=== PATIENT | male | born 1990 | race Caucasian/White ===

== ENCOUNTER 2019-09-23 11:30 | Emergency (ER) | payer OTHER, BC ==
[2019-09-23 12:38] LABS: ABSOLUTE EOSINOPHILS # (AUTO) 0.1 10^3/uL (0.0-0.6); ABSOLUTE LYMPHOCYTES (AUTO) 2.4 10^3/uL (0.5-4.7); ABSOLUTE MONOCYTES (AUTO) 0.8 10^3/uL (0.1-1.4); BASOPHILS % (AUTO) 0.4 % (0-2); EOSINOPHILS % (AUTO) 1.2 % (0-6); HEMATOCRIT 40.6 % (37.9-51.0); HEMOGLOBIN 14.1 g/dL (13.5-17.0); LYMPHOCYTES % (AUTO) 38.3 % (13-45); MEAN CORPUSCULAR HEMOGLOBIN 32.3 pg (27.0-33.4); MEAN CORPUSCULAR HGB CONC 34.6 g/dL (32.0-36.0); MEAN CORPUSCULAR VOLUME 93 fl (80-97); MONOCYTES % (AUTO) 12.8 % (3-13); PLATELET COUNT 124 10^3/uL (150-450); RED BLOOD COUNT 4.35 10^6/uL (4.35-5.55); RED CELL DISTRIBUTION WIDTH 12.7 % (11.5-14.0); SEGMENTED NEUTROPHILS % (AUTO) 47.3 % (42-78); TOTAL CELLS COUNTED % (AUTO) 100 %; WHITE BLOOD COUNT 6.3 10^3/uL (4.0-10.5)
[2019-09-23 13:04] LABS: ALBUMIN 4.3 g/dL (3.5-5.0); ALCOHOL 184 mg/dL (NONE DETECTED); ALKALINE PHOSPHATASE 54 U/L (38-126); ANION GAP 12 (5-19); ASPARTATE AMINO TRANSFERASE 33 U/L (17-59); BILIRUBIN,DIRECT 0.2 mg/dL (0.0-0.4); BILIRUBIN,TOTAL 0.4 mg/dL (0.2-1.3); BLOOD UREA NITROGEN 14 mg/dL (7-20); CALCIUM 8.6 mg/dL (8.4-10.2); CARBON DIOXIDE 24 mmol/L (22-30); CHLORIDE 106 mmol/L (98-107); GLUCOSE 85 mg/dL (75-110); TOTAL PROTEIN 6.8 g/dL (6.3-8.2)
[2019-09-23 13:05] LABS: ACETAMINOPHEN < 10 ug/mL (10-30); SALICYLATE < 1.0 mg/dL (2.0-20.0)
[2019-09-23 15:23] LABS: APPEARANCE,URINE CLEAR; BILIRUBIN,URINE NEGATIVE (NEGATIVE); COLOR,URINE YELLOW; GLUCOSE, URINE NEGATIVE (NEGATIVE); KETONES,URINE NEGATIVE (NEGATIVE); LEUKOCYTE ESTERASE,URINE NEGATIVE (NEGATIVE); NITRITE,URINE NEGATIVE (NEGATIVE); PROTEIN,URINE NEGATIVE (NEGATIVE); URINE SPECIFIC GRAVITY 1.016; UROBILINOGEN,URINE NEGATIVE mg/dL (<2.0)
[2019-09-23 15:38] LABS: URINE AMPHETAMINES SCREEN NEGATIVE; URINE BARBITURATES SCREEN NEGATIVE; URINE BENZODIAZEPINES SCREEN NEGATIVE; URINE COCAINE SCREEN NEGATIVE; URINE MARIJUANA (THC) SCREEN NEGATIVE; URINE METHADONE SCREEN NEGATIVE; URINE PHENCYCLIDINE SCREEN NEGATIVE
--- NOTE | 2019-09-23 16:26 | ER Document Report ---
ED General - General Chief Complaint: Accidental Overdose Stated Complaint: ALTERED MENTAL STATUS Time Seen by Provider: 09/23/19 14:52 Primary Care Provider: AMBER MATSON [Primary Care Provider] - Follow up tomorrow Notes: Patient is a 29-year-old male who comes in because his could not wake him up today. The patient works overnight as a medic. States that he went to sleep at 6 AM and his tried to wake him up this morning at 8 AM because he was snoring too loudly and was waking up their baby. He also took When she was unable to wake him up, she called EMS. Patient states that he started an increased dose of prazosin recently which he just took this morning to go to sleep. He was supposed to work [employer]. He is taking 2 pills instead of 1. Patient also took trazodone, Ultram, and drank alcohol. Patient states that he generally has a very difficult time sleeping and this is what he usually does so that he can fall asleep before he has to work overnight. States that he is actually decreased his drinking of alcohol which his agrees with. He is adamant that this was not a suicidal gesture. He does not feel like hurting himself or anyone else. Patient did not have any trouble breathing but he did receive EMS dose of Narcan for increased somnolence which apparently woke him up. I am not sure whether it was the Narcan or the needle that woke him up. He has no complaints at this time. No nausea vomiting diarrhea, abdominal pain or further concerns. States that he usually does not sleep that soundly. states that she usually does not have that much of a problem waking him up. TRAVEL OUTSIDE OF THE [place] IN LAST 30 DAYS: No - HPI Onset: This morning Quality of pain: No pain Severity: None Pain Level: Denies Associated symptoms: None Exacerbated by: Denies Relieved by: Denies Similar symptoms previously: No Recently seen / treated by doctor: Yes - Related Data Allergies/Adverse Reactions: Sulfa (Sulfonamide Antibiotics) Allergy (Verified 08/14/15 20:50) Past Medical History - Social History Smoking Status: Unknown if Ever Smoked Frequency of alcohol use: Heavy Family History: Reviewed & Not Pertinent Patient has suicidal ideation: No Patient has homicidal ideation: No Psychiatric Medical History: Reports: Other - insomnia Surgical Hx: Negative Review of Systems - Review of Systems -: Yes All other systems reviewed and negative Physical Exam - Vital signs Vitals: Temp Pulse Resp BP Pulse Ox 97.2 F 68 16 117/73 100 09/23/19 11:42 09/23/19 11:42 09/23/19 11:42 09/23/19 11:42 09/23/19 11:42 Interpretation: Normal - General General appearance: Appears well, Other - Drowsy but easily arousable In distress: None - HEENT Head: Normocephalic, Atraumatic Eyes: Normal Pupils: PERRL - Respiratory Respiratory status: No respiratory distress Chest status: Nontender Breath sounds: Normal Chest palpation: Normal - Cardiovascular Rhythm: Regular Heart sounds: Normal auscultation Murmur: No - Abdominal Inspection: Normal Distension: No distension Bowel sounds: Normal Tenderness: Nontender Organomegaly: No organomegaly - Back Back: Normal, Nontender - Extremities General upper extremity: Normal inspection, Nontender, Normal color, Normal ROM, Normal temperature General lower extremity: Normal inspection, Nontender, Normal color, Normal ROM, Normal temperature, Normal weight bearing. No: Ana Paula's sign - Neurological Neuro grossly intact: Yes Cognition: Normal Orientation: AAOx4 Rosalia Coma Scale Eye Opening: Spontaneous Rosalia Coma Scale Verbal: Oriented Rosalia Coma Scale Motor: Obeys Commands Rosalia Coma Scale Total: 15 Speech: Normal Motor strength normal: LUE, RUE, LLE, RLE Sensory: Normal - Psychological Associated symptoms: Normal affect, Normal mood - Skin Skin Temperature: Warm Skin Moisture: Dry Skin Color: Normal Course - Re-evaluation Re-evalutation: 09/23/19 16:30 Patient appears well. No suicidal or homicidal ideation. is not concerned for safety at home. Patient is instructed to only take prazosin and trazodone. He is not to drink alcohol or take tramadol or Zanaflex for sleep. He understands and agrees with this plan. He is not working tonight. He is able to ambulate and take p.o. without difficulty. He will [facility] and return if any worsening or concerning symptoms. Return if further concerns. Understands and agrees with plan. No danger to self or others at this time. Medically and psychiatrically stable for discharge. - Vital Signs Vital signs: Temp Pulse Resp BP Pulse Ox 97.7 F 72 16 119/64 98 09/23/19 16:45 09/23/19 16:45 09/23/19 16:45 09/23/19 16:45 09/23/19 16:45 - Laboratory Result Diagrams: 09/23/19 12:18 09/23/19 12:18 Laboratory results interpreted by me: 09/23/19 09/23/19 12:18 12:18 Plt Count 124 L Salicylates < 1.0 L Acetaminophen < 10 L Discharge - Discharge Clinical Impression: Somnolence, Medication side effects Condition: Stable Disposition: HOME, SELF-CARE Instructions: Medication Side Effects ([facility]) Additional Instructions: Please do not take tramadol, xanaflex or drink alcohol when you are taking prazosin and trazadone. [facility] [[facility] - Follow up tomorrow
[2019-09-23 17:22] VITALS: BP 119/64
== END 2019-09-23 16:45 | disposition home or self-care (01) ==
LOC: ER 11:30
DX: T40.4X5A Adverse effect of other synthetic narcotics, initial encounter (principal); T43.215A Adverse effect of selective serotonin and norepinephrine reuptake inhibitors, initial encounter; R40.0 Somnolence; Y92.9 Unspecified place or not applicable; Z79.899 Other long term (current) drug therapy
CPT/HCPCS: 36415; 80053; 80307; 81001; 85025

== ENCOUNTER → 2020-02-08 | Day surgery (SDC) | payer OTHER ==
--- NOTE | 2020-02-08 16:06 | RADIOLOGY REPORT (SQ) ---
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 FLUOROSCOPY TIME: FT: 12 seconds. 1 images saved to PACS. LIMITATIONS: None. PROCEDURE: Procedure, risks, benefits and alternatives explained to patient who then gave written c onsent. The right hip was marked and a time-out was called for correct marking verification. Entry site marked using fluoroscopic guidance. Hip prepped and draped using sterile technique. Local ane sthesia achieved using 1% lidocaine injection. Hypodermic needle introduced into the joint space un lasha direct fluoroscopic visualization. Non-ionic contrast instilled to confirm intra-articular posit ion. Dilute gadolinium solution then injected. Needle removed and entry site covered with sterile bandage. No immediate complications noted. TECHNIQUE: Digital images acquired during fluoroscopy and stored on PACS. Patient immediately take n to the MR suite for additional imaging. INJECTION LOCATION: Right hip. CONTRAST TYPE AND AMOUNT: 10 mL Dotarem/Saline mixture. IMPRESSION: SUCCESSFUL NEEDLE PLACEMENT AND INJECTION FOR RIGHT HIP MR ARTHROGRAM. COMMENT: Quality ID 145: Final reports for procedures using fluoroscopy that document radiation exp osure indices, or exposure time and number of fluorographic images (if radiation exposure indices are not available) TECHNICAL DOCUMENTATION: JOB ID: [id number] 2010 [employer]- All Rights Reserved Reading location - IP/workstation name: [email or web address] [id number]
--- NOTE | 2020-02-08 16:06 | RADIOLOGY REPORT (SQ) ---
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 FLUOROSCOPY TIME: FT: 12 seconds. 1 images saved to PACS. LIMITATIONS: None. PROCEDURE: Procedure, risks, benefits and alternatives explained to patient who then gave written c onsent. The right hip was marked and a time-out was called for correct marking verification. Entry site marked using fluoroscopic guidance. Hip prepped and draped using sterile technique. Local ane sthesia achieved using 1% lidocaine injection. Hypodermic needle introduced into the joint space un lasha direct fluoroscopic visualization. Non-ionic contrast instilled to confirm intra-articular posit ion. Dilute gadolinium solution then injected. Needle removed and entry site covered with sterile bandage. No immediate complications noted. TECHNIQUE: Digital images acquired during fluoroscopy and stored on PACS. Patient immediately take n to the MR suite for additional imaging. INJECTION LOCATION: Right hip. CONTRAST TYPE AND AMOUNT: 10 mL Dotarem/Saline mixture. IMPRESSION: SUCCESSFUL NEEDLE PLACEMENT AND INJECTION FOR RIGHT HIP MR ARTHROGRAM. COMMENT: Quality ID 145: Final reports for procedures using fluoroscopy that document radiation exp osure indices, or exposure time and number of fluorographic images (if radiation exposure indices are not available) TECHNICAL DOCUMENTATION: JOB ID: [id number] 2010 [employer]- All Rights Reserved Reading location - IP/workstation name: [email or web address] [id number]
== END ==
LOC: RAD 14:40
PROVIDERS: ATTEND Family Medicine
DX: M24.151 Other articular cartilage disorders, right hip (principal)
CPT/HCPCS: 73722; 77002; 27095; A9576

== ENCOUNTER → 2020-02-10 | Day surgery (SDC) | payer OTHER ==
--- NOTE | 2020-02-10 16:43 | RADIOLOGY REPORT (SQ) ---
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 RADIATION DOSE: 02/08/2020 LIMITATIONS: None. FINDINGS: JOINT DISTENSION: Adequate. No loose body. BONE MARROW: No edema. No marrow replacement. FEMORAL HEAD, NECK, AND ACETABULUM: No occult fracture. No osteophytes or subchondral cysts. Normal s phericity of femoral head/neck junction. No acetabular dysplasia. No evidence of femoroacetabular imp ingement. PUBIC RAMI AND ISCHIUM: No occult fracture. SACRUM AND JANE: SI joints normal in signal. No occult fracture. EFFUSIONS: None. LABRUM AND CARTILAGE: No labral tear. Cartilage of normal thickness without delamination. MUSCLES AND SOFT TISSUES: Adductors and piriformis normal. Abductors and greater trochanteric bursa n ormal without edema or fluid. Iliopsoas bursa without fluid. Hamstring attachments without edema or t ear. PELVIC SOFT TISSUES: No masses or adenopathy. SCIATIC NERVE: Identified without masses. OTHER: No other significant finding. IMPRESSION: NORMAL MRI ARTHROGRAM OF THE HIP. TECHNICAL DOCUMENTATION: JOB ID: [id number] 2010 [employer]- All Rights Reserved Reading location - IP/workstation name: [email or web address]
--- NOTE | 2020-02-10 17:03 | RADIOLOGY REPORT (SQ) ---
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 FLUOROSCOPY TIME: 12 seconds of fluoroscopy was used. 1 images saved to PACS. LIMITATIONS: None. PROCEDURE: Procedure, risks, benefits and alternatives explained to patient who then gave written c onsent. The right hip was marked and a time-out was called for correct marking verification. Entry site marked using fluoroscopic guidance. Hip prepped and draped using sterile technique. Local ane sthesia achieved using 1% lidocaine injection. Hypodermic needle introduced into the joint space un lasha direct fluoroscopic visualization. Non-ionic contrast instilled to confirm intra-articular posit ion. Dilute gadolinium solution then injected. Needle removed and entry site covered with sterile bandage. No immediate complications noted. TECHNIQUE: Digital images acquired during fluoroscopy and stored on PACS. Patient immediately take n to the MR suite for additional imaging. INJECTION LOCATION: Right hip. CONTRAST TYPE AND AMOUNT: 10 mL Dotarem/Saline mixture. IMPRESSION: SUCCESSFUL NEEDLE PLACEMENT AND INJECTION FOR RIGHT HIP MR ARTHROGRAM. COMMENT: Quality ID 145: Final reports for procedures using fluoroscopy that document radiation exp osure indices, or exposure time and number of fluorographic images (if radiation exposure indices are not available) TECHNICAL DOCUMENTATION: JOB ID: [id number] 2010 [employer]- All Rights Reserved Reading location - IP/workstation name: [email or web address] [id number]
--- NOTE | 2020-02-10 17:03 | RADIOLOGY REPORT (SQ) ---
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 FLUOROSCOPY TIME: 12 seconds of fluoroscopy was used. 1 images saved to PACS. LIMITATIONS: None. PROCEDURE: Procedure, risks, benefits and alternatives explained to patient who then gave written c onsent. The right hip was marked and a time-out was called for correct marking verification. Entry site marked using fluoroscopic guidance. Hip prepped and draped using sterile technique. Local ane sthesia achieved using 1% lidocaine injection. Hypodermic needle introduced into the joint space un lasha direct fluoroscopic visualization. Non-ionic contrast instilled to confirm intra-articular posit ion. Dilute gadolinium solution then injected. Needle removed and entry site covered with sterile bandage. No immediate complications noted. TECHNIQUE: Digital images acquired during fluoroscopy and stored on PACS. Patient immediately take n to the MR suite for additional imaging. INJECTION LOCATION: Right hip. CONTRAST TYPE AND AMOUNT: 10 mL Dotarem/Saline mixture. IMPRESSION: SUCCESSFUL NEEDLE PLACEMENT AND INJECTION FOR RIGHT HIP MR ARTHROGRAM. COMMENT: Quality ID 145: Final reports for procedures using fluoroscopy that document radiation exp osure indices, or exposure time and number of fluorographic images (if radiation exposure indices are not available) TECHNICAL DOCUMENTATION: JOB ID: [id number] 2010 [employer]- All Rights Reserved Reading location - IP/workstation name: [email or web address] [id number]
== END ==
LOC: RAD 12:24
PROVIDERS: ATTEND Family Medicine
DX: M24.152 Other articular cartilage disorders, left hip (principal)
CPT/HCPCS: 27095; 77002